=== PATIENT | female | born 1970 | race Caucasian/White ===

== ENCOUNTER 2018-11-14 14:00 | Emergency (ER) | payer OTHER, SELFPAY ==
[2018-11-14 14:01] VITALS: BP 166/106; PULSE 70; RESP 16; TEMP 36.8; O2SAT 99; BMI 24.2
[2018-11-14] MEDS: Diphth,Pertuss(Acell),Tet Vac 0.5 ML Vial IM (14:37)
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
== END 2018-11-14 15:13 | disposition home or self-care (01) ==
LOC: ED 15:10
PROVIDERS: Emergency Provider Physician Assistant Medical
DX: S01.111A Laceration without foreign body of right eyelid and periocular area, initial encounter (principal); W22.8XXA Striking against or struck by other objects, initial encounter; Y93.89 Activity, other specified; Z87.891 Personal history of nicotine dependence
CPT/HCPCS: 12011; 90715; 99284

== ENCOUNTER 2020-09-04 14:55 | Emergency (ER) | payer OTHER, SELFPAY ==
[2020-09-04 14:57] VITALS: BP 192/96; PULSE 60; RESP 14; TEMP 36.8; O2SAT 97; BMI 26.1
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
== END 2020-09-04 16:57 | disposition home or self-care (01) ==
PROVIDERS: Emergency Provider Emergency Medicine
DX: R07.89 Other chest pain (principal); Z87.891 Personal history of nicotine dependence
CPT/HCPCS: 71101; 99282

== ENCOUNTER 2023-11-17 06:25 | Day surgery (SDC) | payer OTHER, SELFPAY ==
--- NOTE | 2023-10-28 12:34 | EKG12_ITS ---
Test Reason : PRE OP Blood Pressure : / mmHG Vent. Rate : 072 BPM Atrial Rate : 072 BPM P-R Int : 164 ms QRS Dur : 080 ms QT Int : 400 ms P-R-T Axes : 068 051 066 degrees QTc Int : 438 ms Normal sinus rhythm Normal ECG Confirmed by NUBIA MCDONALD, MICHELLE ([id number]), loan expeditor NANETTE GALVAN ([id number]) on 10/29/2023 7:00:56 AM Referred By: Camilo Baron Confirmed By:MICHELLE DELACRUZ MD
[2023-10-28 13:20] LABS: Absolute Lymphocyte Count 2.47 X10^3/uL (0.83-4.51); Basophil# 0.04 X10^3/uL; Basophil% 0.7 % (0-1); Eosinophil# 0.03 X10^3/uL; Eosinophils% 0.5 % (0-5); Hematocrit 44.1 % (37-47); Hemoglobin 14.1 g/dL (12.0-15.0); Lymphocyte # 2.47 X10^3/ul (0.83-4.51); Lymphocyte % 42.4 % (19-41); Mean Corpuscular Hgb 27.4 pg (27.0-32.0); Mean Corpuscular Volume 85.6 fL (81-99); Mean Platelet Vol. 9.4 fl (6.2-12.0); Monocyte% 5.1 % (0-10); NRBC Flagged by Analyzer 0 % (0-5); Neutrophil # 2.98 X10^3/uL (2.7-7.7); Neutrophil % 51.1 % (47-70); Platelet Count 306 K/mm3 (150-450); RBC Distribution Width CV 13.5 % (11.6-14.6); RBC Distribution Width SD 42.4 fl (35.1-43.9); Red Blood Count 5.15 M/mm3 (4.2-5.4); White Blood Count 5.8 K/mm3 (4.4-11.0)
[2023-10-28 13:43] LABS: Anion Gap 6 (5-15); BUN 10 mg/dL (7-18); Calcium,Total 9.9 mg/dL (8.5-10.1); Chloride 104 mmol/L (98-107); Creatinine, Serum 0.67 mg/dL (0.55-1.02); EST Glomerular Filtration Rate 99 mL/min (>60); Est Glom Filt Rate - Afr Amer 120 mL/min (>60); Glucose 125 mg/dL (74-106); Potassium 4.1 mmol/L (3.5-5.1); Sodium Level 141 mmol/L (136-145)
[2023-11-17] VITALS (7 sets, daily range): BP systolic 125–137; BP diastolic 79–96; PULSE 60–74; RESP 16; TEMP 35.9–36.5; O2SAT 93–100; BMI 24.9
--- NOTE | 2023-11-17 06:41 | PCM.PRE.AN2 ---
ASA Classification* ASA Classification ASA Classification: 2 Assessment & Plan Anesthesia* Anesthesia Assessment Anesthesia Assessment: Discussed sedation and/or anesthesia options, risks, benefits, and alternatives with patient/parents/legal guardian/POA. Questions invited. The patient/parents/legal guardian/POA seems to understand and agrees to proceed with anesthesia plan. Reviewed the physical assessment, medical history, allergy history and patient home medications list prior to surgery/procedure/anesthetic and documented any changes. Performed airway and anesthesia risk assessments. Anesthesia Type Anesthesia Type: General (Block consented) Anesthesia Focused Assessment* Airway Assessment Mouth opens: >3 cm Mallampati Score: II Focused Labs Anesthesia Preop lab: CBC WBC 5.8 K/mm3 (4.4-11.0) 10/28/23 12:32 RBC 5.15 M/mm3 (4.2-5.4) 10/28/23 12:32 Hgb 14.1 g/dL (12.0-15.0) 10/28/23 12:32 Hct 44.1 % (37-47) 10/28/23 12:32 Plt Count 306 K/mm3 (150-450) 10/28/23 12:32 CHEMISTRY Potassium 4.1 mmol/L (3.5-5.1) 10/28/23 12:32 Sodium 141 mmol/L (136-145) 10/28/23 12:32 BUN 10 mg/dL (7-18) 10/28/23 12:32 Creatinine 0.67 mg/dL (0.55-1.02) 10/28/23 12:32 Glucose 125 mg/dL (74-106) H 10/28/23 12:32 COAG Pre-Assessment Diagnosis/Proposed Procedure Planned Operative Procedure(s): (R) RIGHT SHOULDER ARTHROSCOPY WITH ROTATOR CUFF REPAIR AND SUBACROMIAL DECOMPRESSION Anesthesia History Anesthesia History - supervisor denture department: Anesthesia History - supervisor denture department Hx Hospitalization No 10/28/23 08:11 Any Problems With Anesthesia No 10/28/23 08:11 Cholinesterase deficiency No 10/28/23 08:11 You/Your Family Experience No 10/28/23 08:11 fever (hyperthermia) with Relationship Recent Exposure to Contagious Disease Does patient have nerve No 10/28/23 08:11 stimulator Patient instructed to have device shut off --Does patient have Pacemaker or ICD? When Was Last Pacemaker Check QUESTION #4 FULL TEXT: You/Your Family Experience fever (hyperthermia) with Anesthesia Last Oral Intake Last Oral intake: Last Oral Intake NPO since Meds taken in AM with sips of water? Meds patient instructed to take am of surgery PONV PONV - supervisor denture department: PONV - supervisor denture department Female Yes 10/28/23 08:11 HX of Motion Sickness No 10/28/23 08:11 HX of N/V After Surgery No 10/28/23 08:11 Non-Smoker Yes 10/28/23 08:11 Duration of Surgery greater No 10/28/23 08:11 than 60 minutes Number of Risk Factors 2 10/28/23 08:11 PONV Score Moderate Risk 10/28/23 08:11 Height & Weight Height & Weight: Anesthesia: Height & Weight Height 5 ft 6 in 09/04/20 14:57 Respiratory Assessment Respiratory Assessment - supervisor denture department: Respiratory Tract Infection Hx - supervisor denture department Hx Respiratory Tract Infection No 10/28/23 08:11 STOP Sleep Apnea STOP Sleep Apnea - supervisor denture department: STOP Sleep Apnea - supervisor denture department Hx Hypertension Yes 10/28/23 08:11 Hx Sleep Apnea No 10/28/23 08:11 CPAP BIPAP Do you snore loudly (louder No 10/28/23 08:11 than talking or can be heard Do you often feel tired/ No 10/28/23 08:11 fatigued/ sleepy during daytime? Has anyone observed you stop No 10/28/23 08:11 breathing during sleep? STOP Results Negative 10/28/23 08:11 QUESTION #5 FULL TEXT : Do you snore loudly (louder than talking or can be heard through closed doors)? Tobacco Use History Tobacco Use History - supervisor denture department: Tobacco Use History - supervisor denture department Tobacco Use Smoking Status Former smoker 10/28/23 08:11 Hx Tobacco Use No 10/28/23 08:11 Years Smoking Packs Smoked per Day Smoking Cessation Date was No - quit smoking greater 10/28/23 08:11 within the last 15 years than 15 years ago Hx Smoking Cessation Date 10/28/23 08:11 Hx Smoking Cessation Counseling Hematologic Medial History Hematologic Hx - supervisor denture department: Hematologic Medical Hx - shank breaker Hx of Blood Transfusion No 10/28/23 08:11 Hx of Transfusion in last 3 No 10/28/23 08:11 Months Date of Last Transfusion (if within last 3 months) Ever experience any problems No 10/28/23 08:11 with transfusion(s)? Specify any problems Hx of Preganancy in last 3 No 10/28/23 08:11 Months Nurse Filling Out Transfusion BRAYDEN 10/28/23 08:11 & Questions: Date: 10/28/23 10/28/23 08:11 Time: 08:17 10/28/23 08:11 Patient unable to answer at this time (ie. confused, unrespo /Reproduction History /Reproductive History - supervisor denture department: /Reproductive Hx- supervisor denture department Hx Now No 10/28/23 08:11 Gestational Age (in weeks): EDC: Hx Hx Para Hx Section SAB No 10/28/23 08:11 Active Medications Active Medications: Current Medications Generic Name Dose Route Start Last Admin Trade Name Freq PRN Reason Stop Dose Admin Cefazolin Sodium 2 gm/ Sodium 110 mls @ 150 mls/hr 11/17/23 09:00 Chloride IV 11/17/23 09:43 PREOP ONE Lactated Ringer's 1,000 mls @ 15 mls/hr 11/17/23 06:45 IV .Q48H KENDALL PFSH Medical History Post-menopausal Former smoker Hypertension Home Medications ?Medication ?Instructions ?Recorded ?Last Taken ?Type lisinopril 20 2 ea PO DAILY 11/14/18 Unknown History mg-hydrochlorothiazide 12.5 mg tablet Allergy/AdvReac Type Severity Reaction Status Date / Time No Known Allergies Allergy Verified 09/04/20 14:57 Surgical History History of breast augmentation History of History of tubal ligation History of appendectomy History of tonsillectomy Social History Smoking Status: Former smoker Review of Systems (Anesthesia) ROS Narrative System reviewed and no additional complaints, except as documented.
[2023-11-17] MEDS: Lactated Ringers 1,000 ML 15 ML IV (07:07)
[2023-11-17] MEDS: Cefazolin 2 GM in 0.9% Normal Saline (100mL Bag) 100 ML IV (08:37)
[2023-11-17] MEDS: Epinephrine (1 mg/ml) 1 MG/ML VIAL (09:03)
--- NOTE | 2023-11-17 10:15 | PCM.OPRPT ---
Report of Operation Date of Procedure: 11/17/23 Description of Surgical Findings:: Preoperative diagnosis: 1. Right shoulder rotator cuff tear 2. Right shoulder subacromial impingement syndrome Postoperative diagnosis: 1. Right shoulder rotator cuff tear 2. Right shoulder subacromial impingement syndrome Procedure 1. Right shoulder arthroscopic rotator cuff repair 2. Right shoulder arthroscopic subacromial decompression Surgeon: Camilo Baron DO [place] Firer/Fireman: Emily Gallo PA-C Anesthesia: General LMA with interscalene block Instrument Processing Tech: Ubaldo Cotto CRNA Estimated blood loss: 5 cc IV fluids: Per anesthesia record Urine output: None recorded Packing/drains: None Implants: Arthrex fiber tack RC, Arthrex 4.75 mm bio composite swivel lock anchor Preoperative indications: This is an active 53-year-old female seen in the outpatient setting with right shoulder pain and weakness. There was weakness and provocative testing of supraspinatus. MRI demonstrated a full-thickness retracted tear of the supraspinatus. I recommend surgical intervention in the form of right shoulder arthroscopic rotator cuff repair, subacromial decompression. Informed consent was obtained in the outpatient setting. Risks, benefits, terms the procedure reviewed with the patient at length and he agreed to proceed. Risk included but were not limited to bleeding, infection, loss of life or limb, need for additional surgery, persistent pain, nonhealing tendon or wounds, stiffness, neurovascular injury, DVT or PE. Patient expressed understanding of these risks and wished to proceed with surgery. Description of procedure: Patient was identified in preoperative holding area by name, medical record number, and date of . The operative extremity was marked. All questions were answered to the patient's satisfaction. An interscalene block was administered by anesthesia prior to the procedure. Patient was then brought to the operative suite at time of her procedure. He was positioned supine a sterile operating table. General anesthesia was induced and LMA was placed. Patient was then placed in lateral decubitus position with the right side up. A beanbag was used to hold the patient in the lateral decubitus position. An axillary roll was placed. Pillows were placed beneath and between his legs to for any bony prominences. We prepped and draped the Right upper extremity in normal, sterile orthopedic fashion. The operative extremity was placed in traction utilizing arthroscopic bedroom with 10 pounds of tension applied to the operative extremity throughout the arthroscopic portion of the case, approximately 45 minutes. We performed a timeout with all parties in attendance in agreement with the side, site, and operation be performed. No concerns were voiced and we elected to proceed with surgery. 2 g Ancef was administered IV prior to incision by anesthesia staff. I first established a standard posterior portal 2 fingerbreadths inferior medial to the posterior lateral border of the scapular spine. Blunt tipped trocar and arthroscopic cannula was introduced into the glenohumeral joint. Joint was inflated with normal saline with epinephrine. Arthroscope was then introduced. Diagnostic arthroscopy was commenced. Full-thickness tearing was noted at the supraspinatus with a bare footprint. Biceps tendon was pristine. Standard interval portal was then established with an 11 blade scalpel. Subscapularis was unremarkable. Glenohumeral cartilage was minimally degenerative with grade I chondromalacia. No significant labral tearing or fraying was noted. The articular side of the supraspinatus was then debrided with the radial resector. No loose bodies were identified. I then turned my attention to the subacromial space. Arthroscopic instruments were removed. I reentered the shoulder in the subacromial space with blunt tipped trocar. Standard lateral portal was established with an 11 blade scalpel. Passport was placed for suture management during rotator cuff repair. I then skeletonized the undersurface of the acromion. A prominent downsloping spur from the anterior lateral surface of the acromion was identified. Acromioplasty was performed with the arthroscopic bur removing the spur. I then exposed the supraspinatus footprint with the cautery device. The footprint was lightly decorticated with a bur. Bursal side of the tendon tissue was debrided with a radial resector. Tear measured approximately 1 x 1 cm after debridement of tendinosis tissue. I then proceeded with double row fixation. A single fiber tack anchor was placed at the medial row at the articular margin. Suture was passed through the rotator cuff tissue via inverted mattress passing both the repair tape and knotless mechanism repair suture via scorpion suture passer with assistance of a fiber link suture for passing both types of suture in the same tissue piercing. I then completed our lateral row with fixation with tensioning of the tape sutures and placed in the swivel lock anchor with excellent cortical purchase. I then returned to the medial row and passed the repair suture through the knotless mechanism achieving a medial willy type fixation with compression at the footprint. There was a small dogear anteriorly which was repaired with the knotless repair suture from the lateral row swivel lock anchor which reduced the dogear well. Excellent compression and reapproximation of the supraspinatus to his [place] footprint was achieved. I then thoroughly lavaged the subacromial space. Arthroscopic instruments were removed. Portal sites were closed in standard fashion with a [id number] 3-0 nylon suture. Bulky sterile compression dressing was applied. Patient was placed in UltraSling. She tolerated the procedure well without apparent complication. She was safely awoken the operative suite and extubated. She was transferred to his gurney and subsequently to PACU in stable condition. Need for skilled advertising assistant manager: Emily Gallo PA-C was critical to the outcome of the case. During the course of the procedure the physician advertising assistant manager played a vital role. Her intimate knowledge of my steps in the procedure aided in safe and expedient completion of the procedure. The PA played a vital role in positioning particularly in obtaining the appropriate positioning. The PA was also vital in the retraction of soft tissues during the exposure and protecting vital structures. The PA was also vital and obtaining tendon reduction and assisting with hardware placement. She also played a vital role in closure and sling application with my direct supervision. Post Operative Plan: Weightbearing: Nonweightbearing right upper extremity, okay for pendulums. Range of motion of wrist elbow and hand as tolerated. Antibiotics: 2 g Ancef IV prior to incision DVT Prophylaxis: Aspirin enteric-coated 81 mg twice daily starting tomorrow Maynard: None Dressing: Maintain dressing x 2 days then ok to shower X-Rays: None Pain Medication: Oxycodone Rx upon discharge Follow-up: 2 weeks post-operatively in the office. Physical therapy to start in 2 weeks, standard protocol.
--- NOTE | 2023-11-17 10:24 | PCM.POST.ANE ---
Anesthesia: Postop Eval I Current Vital Signs Temperature: 97.3 F Pulse Rate: 71 Blood Pressure: 137/88 Respiratory Rate: 16 Pulse Ox: 99 Oxygen Delivery Method: Room Air Assessment Airway patent: Yes Spontaneous unlabored respirations: Yes Mental status: Awake and Calm nausea: No Vomiting: No Anesthesia Complication: No Fluid Hydration Crystalloid volume administer (ml): 800 Total IV fluid infused: 800 Progress Note Anesthesia document: Postop Eval 1 completed: Yes
[2023-11-17] MEDS: Ketorolac 15 MG/ML Vial IV (10:42)
--- NOTE | 2023-11-17 14:53 | POSTOPAN2_ITS ---
Anesthesia Postop Eval I Sum Postop Eval Completion status Anesthesia document: Postop Eval 1 completed: Yes Anesthesia Postop Eval I Summary Anesthesia Postop Eval I Summary: Anesthesia Postop Eval I: Assessment Summary Airway patent Yes 11/17/23 10:25 [email or web address] Spontaneous unlabored Yes 11/17/23 10:25 [email or web address][email or web address] respirations Mental status Awake,Calm 11/17/23 10:25 [email or web address].[email or web address] nausea No 11/17/23 10:25 [email or web address].[email or web address] Vomiting No 11/17/23 10:25 [email or web address] Anesthesia Postop Eval I: Fluid Summary Crystalloid volume administer 800 11/17/23 10:25 [email or web address] (ml) Colloids volume administered ( ml) Blood Product volume administered (ml) Total IV fluid infused 800 11/17/23 10:25 [email or web address].[email or web address] Anesthesia Postop Eval I: Summary Notes Anesthesia Complication No 11/17/23 10:25 [employer] [email or web address].[email or web address] Anesthesia Complication Comment: Post-operative progress note Anesthesia: Postop Eval II Evaluation Mental status: Awake and Calm Pain Level: 1 nausea: No Vomiting: No Complications Anesthesia Complication: No
--- NOTE | 2023-11-17 14:53 | PCM.POSTANE2 ---
Anesthesia Postop Eval I Sum Postop Eval Completion status Anesthesia document: Postop Eval 1 completed: Yes Anesthesia Postop Eval I Summary Anesthesia Postop Eval I Summary: Anesthesia Postop Eval I: Assessment Summary Airway patent Yes 11/17/23 10:25 [employer][email or web address] Spontaneous unlabored Yes 11/17/23 10:25 [employer][email or web address] respirations Mental status Awake,Calm 11/17/23 10:25 [employer] US[employer].[email or web address] nausea No 11/17/23 10:25 [employer] US[employer].[email or web address] Vomiting No 11/17/23 10:25 [employer] US[employer].[email or web address] Anesthesia Postop Eval I: Fluid Summary Crystalloid volume administer 800 11/17/23 10:25 [employer] US[employer].[email or web address] (ml) Colloids volume administered ( ml) Blood Product volume administered (ml) Total IV fluid infused 800 11/17/23 10:25 [employer] US[employer].[email or web address] Anesthesia Postop Eval I: Summary Notes Anesthesia Complication No 11/17/23 10:25 [employer] US[employer].[email or web address] Anesthesia Complication Comment: Post-operative progress note Anesthesia: Postop Eval II Evaluation Mental status: Awake and Calm Pain Level: 1 nausea: No Vomiting: No Complications Anesthesia Complication: No
== END 2023-11-17 11:31 | disposition home or self-care (01) ==
LOC: SDC 06:26 → AC 06:27
PROVIDERS: PCP Registered Nurse; Referring Provider Student in an Organized Health Care Education/Training Program; Visit Provider Student in an Organized Health Care Education/Training Program
PROC: (CPT 29827; principal; 2023-11-17 08:10)
DX: M75.101 Unspecified rotator cuff tear or rupture of right shoulder, not specified as traumatic (principal); M75.41 Impingement syndrome of right shoulder; I10 Essential (primary) hypertension; Z79.899 Other long term (current) drug therapy; Z87.891 Personal history of nicotine dependence
CPT/HCPCS: 29827; 29826; 64415; 01630; 36415; 80048; 85025; 93005; C1713; J7120; J2405

== ENCOUNTER → 2024-05-14 | Outpatient (CLI) | payer OTHER, SELFPAY ==
[2024-05-14 08:38] LABS: Hematocrit 42.7 % (37-47); Hemoglobin 13.9 g/dL (12.0-15.0); Mean Corp Hgb Conc 32.6 g/dL (32-36); Mean Corpuscular Volume 86.1 fL (81-99); Mean Platelet Vol. 9.5 fl (6.2-12.0); Platelet Count 298 K/mm3 (150-450); RBC Distribution Width CV 13.2 % (11.6-14.6); Red Blood Count 4.96 M/mm3 (4.2-5.4); White Blood Count 4.4 K/mm3 (4.4-11.0)
[2024-05-14 09:14] LABS: Hemoglobin A1c 5.4 % (<=5.6)
[2024-05-14 09:33] LABS: ALB/GLOB Ratio 1.7 RATIO (0.9-2.4); AST(SGOT) 21 U/L (<=31); Alanine Aminotransfer ALT/SGPT 18 U/L (<=34); Albumin, Serum 4.6 g/dL (3.5-5.0); Alkaline Phosphatase 86 U/L (35-104); Anion Gap 11 (5-15); BUN 16 mg/dL (4-19); BUN/Creat Ratio 25.2 RATIO (10-20); Calcium,Total 9.5 mg/dL (7.6-11.0); Carbon Dioxide 27.5 mmol/L (21.0-32.0); Chloride 104 mmol/L (98-108); Cholesterol 187 mg/dL (<=200); Creatinine, Serum 0.62 mg/dL (0.70-1.20); EST Glomerular Filtration Rate 108 (>60); Globulin 2.8 g/dL (2.2-4.2); Glucose 96 mg/dL (70-99); High Density Lipoprotein 90 mg/dL; Low Density Lipoprotein Calc. 86 mg/dL; Potassium 4.5 mmol/L (3.3-5.1); Protein, Total 7.3 g/dL (5.9-8.4); Sodium Level 142 mmol/L (133-145); Thyroid Stim Hormone (TSH) 0.992 uIU/mL (0.300-4.200); Total Bilirubin 0.45 mg/dL (0.00-1.30); Triglycerides 52 mg/dL; Very Low Density Lipoprotein 10 mg/dL (5-40); Vitamin D,25 Hydroxy 54.1 ng/mL (30-100); cholesterol:hdl ratio screen 2.07
== END | disposition home or self-care (01) ==
LOC: LAB 08:01
PROVIDERS: PCP Registered Nurse; Referring Provider Registered Nurse; Visit Provider Registered Nurse
DX: Z00.00 Encounter for general adult medical examination without abnormal findings (principal); Z13.1 Encounter for screening for diabetes mellitus; Z13.21 Encounter for screening for nutritional disorder; Z13.29 Encounter for screening for other suspected endocrine disorder
CPT/HCPCS: 36415; 80053; 80061; 82306; 83036; 84439; 84443; 85027